=== PATIENT | female | born 1975 | race Caucasian/White ===

== ENCOUNTER 2017-01-05 01:54 | Emergency (ER) | payer MEDICAID ==
[2017-01-05 02:01] VITALS: BP 132/75
== END 2017-01-05 04:48 | disposition home or self-care (01) ==
LOC: ED 01:54
DX: S13.9XXA Sprain of joints and ligaments of unspecified parts of neck, initial encounter (principal); S61.306A Unspecified open wound of right little finger with damage to nail, initial encounter; S01.81XA Laceration without foreign body of other part of head, initial encounter; S09.90XA Unspecified injury of head, initial encounter; W19.XXXA Unspecified fall, initial encounter; Y93.89 Activity, other specified; Y92.89 Other specified places as the place of occurrence of the external cause; Y99.8 Other external cause status
CPT/HCPCS: J3490